=== PATIENT | female | born 1995 | race Caucasian/White ===

== ENCOUNTER → 2019-10-15 17:16 | Outpatient (CLI) | payer BC, SELFPAY ==
[2019-10-15 18:04] LABS: Basophils # 0.1 K/mm3 (0-0.2); Basophils % 0.6 % (0.1-2.0); Eosinophils # 0.1 K/mm3 (0.0-0.4); Eosinophils % 0.5 % (0.1-12.0); Hematocrit 45.9 % (37.0-47.0); Hemoglobin 14.9 g/dL (12.2-16.2); Lymphocytes # 2.2 K/mm3 (0.7-4.5); Lymphocytes % 20.7 % (10-50); Mean Corpuscular HGB Conc 32.6 g/dL (31.8-35.4); Mean Corpuscular Hemoglobin 30.3 pg (27.0-31.2); Mean Corpuscular Volume 93.2 fl (81-99); Mean Platelet Volume 9.1 fl (7.4-10.4); Monocytes # 0.4 K/mm3 (0.1-1.0); Monocytes % 3.8 % (1.7-9.3); Neutrophils % 74.3 % (37.0-80.0); Platelet Count 268 K/mm3 (142-424); Red Blood Count 4.92 M/mm3 (4.20-5.40); Red Cell Distribution Width 12.5 % (11.5-17.5); White Blood Count 10.8 K/mm3 (4.8-10.8)
[2019-10-15 19:29] LABS: Free Thyroxine Index 3.8 ug/dL (5.93-13.13); T4 (Thyroxine) 9.9 ug/dl (4.7-13.3); Thyroid Stimulating Hormone 5.91 uIU/ml (0.358-3.740); Triiodothryronine (T3) Uptake 38 % (31-39)
[2019-10-17 11:06] LABS: Thyroid Peroxidase Antibodies 36 IU/mL (0-34); Vitamin B12 423 pg/mL (232-1245)
[2019-10-17 11:07] LABS: Vitamin D 25 Hydroxy 31.9 ng/mL (30.0-100.0)
== END ==
PROVIDERS: Visit Provider Nurse Practitioner Family
DX: E01.0 Iodine-deficiency related diffuse (endemic) goiter (principal); R53.81 Other malaise; N91.2 Amenorrhea, unspecified
CPT/HCPCS: 36415; 82607; 82652; 84436; 84443; 84479; 85025; 86376

== ENCOUNTER → 2019-10-19 12:39 | Outpatient (CLI) | payer BC, SELFPAY ==
--- NOTE | 2019-10-19 12:48 | US_ITS ---
PROCEDURE: US THYROID CLINICAL INDICATION: THYROMEGLY, HYPOTHYROIDISM COMPARISON: No exams were available for comparison FINDINGS: Right lobe: 4.4 x 1.8 x 3.2 cm. There is a 2.5 x 1 cm slightly hypoechoic nodule in the right aspect of the isthmus. This is well-circumscribed with no calcifications and wider than tall. There is heterogeneous echogenicity of both lobes of the thyroid gland. Left lobe: 4.6 x 1.7 x 1.9 cm with heterogeneous echogenicity. Additional findings: IMPRESSION: 2.5 x 1 cm solid-appearing nodule T rads level 4 moderately suspicious. Recommend ultrasound-guided FNA Enlarged heterogeneous thyroid bilaterally. Dictated by: Adelso Dominguez MD 10/19/2019 14:02 Electronically signed by Adelso Dominguez MD in [place] 10/19/2019 14:02
== END ==
PROVIDERS: PCP Nurse Practitioner Family; Visit Provider Nurse Practitioner Family
DX: E01.0 Iodine-deficiency related diffuse (endemic) goiter (principal); E03.9 Hypothyroidism, unspecified
CPT/HCPCS: 76536

== ENCOUNTER → 2021-08-13 15:02 | Outpatient (CLI) | payer BC, SELFPAY ==
[2021-08-13 16:26] LABS: Free T4 (Free Thyroxine) 1.48 ng/dl (0.78-2.19)
[2021-08-13 16:42] LABS: Thyroid Stimulating Hormone 2.33 uIU/mL (0.465-4.68)
== END ==
PROVIDERS: Visit Provider Nurse Practitioner Family
DX: E06.3 Autoimmune thyroiditis (principal)
CPT/HCPCS: 36415; 84439; 84443

== ENCOUNTER 2023-10-24 13:48 | Outpatient (CLI) | payer BC, SELFPAY ==
--- NOTE | 2023-10-24 13:58 | US_ITS ---
FINAL REPORT CLINICAL HISTORY: AUTOIMMUNE HYPOTHYROIDISM -- enlarged thyroid COMPARISON: None FINDINGS: THYROID ULTRASOUND: The right lobe of the thyroid measures 4.4 x 1.7 x 1.6 cm in size, while the left lobe of the thyroid measures 4.4 x 1.5 x 1.5 cm in size. The echotexture of both lobes of the thyroid gland is heterogeneous. The isthmus of the thyroid measures 5 mm in thickness. There is overall a lobular contour to the thyroid gland. There are several nodules identified, 1 of which is in the isthmus of the thyroid on the right side, 10 x 8 x 6 mm in size, isoechoic, a TI-RADS category 3 nodule. A second nodule is present in the right lower lobe of the thyroid gland, measuring 11 x 6 x 7 mm in size, solid, isoechoic, a TI-RADS category 3 nodule. No other definitive nodules are noted. IMPRESSION: Heterogeneous low consistent with the patient's clinical diagnosis of an autoimmune process. Two definable nodules are seen in the thyroid gland as described, which are both TI-RADS category 3 nodule, which do not require follow-up due to size at this time. Reviewed, Interpreted and Dictated by Edwin Canas III, MD Transcribed by Stephanie Vargas Authenticated and [facility]
== END 2023-10-24 23:59 ==
PROVIDERS: PCP Nurse Practitioner Family; Visit Provider Nurse Practitioner Family
DX: E01.0 Iodine-deficiency related diffuse (endemic) goiter (principal); E06.3 Autoimmune thyroiditis
CPT/HCPCS: 76536